=== PATIENT | female | born 1960 | race Caucasian/White ===

== ENCOUNTER 2019-03-23 16:36 | Emergency (ER) | payer OTHER ==
[2019-03-23] MEDS: IBUPROFEN 600 MG TAB PO (17:21)
== END 2019-03-23 18:30 | disposition home or self-care (01) ==
LOC: FTE 16:36
DX: S39.012A Strain of muscle, fascia and tendon of lower back, initial encounter (principal); S13.9XXA Sprain of joints and ligaments of unspecified parts of neck, initial encounter; V49.50XA Passenger injured in collision with unspecified motor vehicles in traffic accident, initial encounter
CPT/HCPCS: 72040; 72100; 99283-25